=== PATIENT | male | born 1985 | race African-American/Black ===

== ENCOUNTER 2016-06-06 22:10 | Emergency (ER) | payer MEDICAID ==
[~2016-06-06] VITALS: Ht 185.4 cm; Wt 86.2 kg
--- NOTE | 2016-06-06 22:20 | Emergency Room Report ---
History of Present Illness General Chief Complaint: Overdose Source: Patient Present Illness HPI This is a 30-year-old male with a history of ADHD. He present with chief complaint of suicidal thoughts with overdose on his gabapentin. He took approximately half the bottle about an hour prior to arrival now. He said he want to kill himself. Denies any other complaint. No nausea no vomiting. No fever or chills. Never done this before. Never been in a psychiatric hospital. Denies any alcohol drugs. Allergies: Coded Allergies: No Known Allergies (Unverified , 06/06/16) Patient History Past Medical History: see triage record, old chart reviewed Past Surgical History: none Pertinent Family History: none Social History: Denies: smoking Immunizations: other Reviewed Nursing Documentation: PMH: Agreed, PSxH: Agreed Review of Systems Eye: Denies: blurred vision, eye pain ENT: Denies: ear pain, nose congestion, throat swelling Respiratory: Denies: cough, shortness of breath Cardiovascular: Denies: chest pain, palpitations Gastrointestinal: Denies: abdominal pain, diarrhea, nausea, vomiting Musculoskeletal: Denies: back pain, joint pain Skin: Denies: rash Neurological: Denies: headache, numbness Endocrine: Denies: increased thirst, increased urine Hematologic/Lymphatic: Denies: easy bruising All Other Systems: negative except mentioned in HPI Physical Exam Vital Signs Date Time Temp Pulse Resp B/P Pulse Ox O2 Delivery O2 Flow Rate FiO2 06/06/16 21:59 98.2 65 16 146/82 98 Room Air vitals normal Sp02 EP Interpretation: reviewed, normal General Appearance: well appearing, no apparent distress, alert Head: normocephalic, atraumatic Eyes: bilateral eye EOMI, bilateral eye PERRL ENT: hearing grossly normal, normal pharynx Neck: full range of motion, supple, no meningismus Respiratory: chest non-tender, lungs clear, normal breath sounds Cardiovascular #1: regular rate, rhythm, no murmur Gastrointestinal: normal bowel sounds, non tender, no mass, no organomegaly, no bruit, non-distended Musculoskeletal: back normal, gait/station normal, normal range of motion Psychiatric: mood/affect normal, other - Expressed suicidal thoughts Skin: warm/dry Medical Decision Making Diagnostic Impression: Primary Impression: Drug overdose Qualified Codes: T50.902A - Poisoning by unspecified drugs, medicaments and biological substances, intentional self-harm, initial encounter Additional Impression: Suicidal overdose Qualified Codes: T50.902A - Poisoning by unspecified drugs, medicaments and biological substances, intentional self-harm, initial encounter ER Course Patient presents with a questionable overdose. His affect is very flat. He is medically clear for psychiatric evaluation. No adverse affect. Lab Results Impression labs normal EKG Diagnostic Results Rate: normal Rhythm: NSR ST Segments: no acute changes Rhythm Strip Diag. Results EP Interpretation: yes Rate: 55 Rhythm: NSR, no PVC's, no ectopy Last Vital Signs Date Time Temp Pulse Resp B/P Pulse Ox O2 Delivery O2 Flow Rate FiO2 06/06/16 21:59 98.2 65 16 146/82 98 Room Air Status: improved Disposition: XFER TO PSYCH HOSP/UNIT Condition: Stable SARAH DOAN M.D. Jun 06, 2016 22:20
[2016-06-06 22:30] VITALS: BP 132/75
[2016-06-06] MEDS ORDERED: Activated Charcoal 50gm/240ml Btl ORAL ONE (22:30)
[2016-06-06 22:45] LABS: BASOPHILS % (AUTO) 1.2 % (0.0-2.0); LYMPHOCYTES % (AUTO) 34.2 % (20.0-45.0); MEAN CORPUSCULAR HGB CONC 32.2 G/DL (32.0-36.0); MEAN CORPUSCULAR VOLUME 93 FL (80-99); MEAN PLATELET VOLUME 10.4 FL (6.5-10.1); MONOCYTES % (AUTO) 8.2 % (1.0-10.0); NEUTROPHILS % (AUTO) 55.4 % (45.0-75.0); PLATELET COUNT 134 K/UL (150-450); RED BLOOD COUNT 4.74 M/UL (4.70-6.10); RED CELL DISTRIBUTION WIDTH 13.1 % (11.6-14.8); WHITE BLOOD COUNT 6.8 K/UL (4.8-10.8)
[2016-06-06 22:53] LABS: ACETAMINOPHEN < 10 ug/mL (10-30); ALANINE AMINOTRANSFERASE 9 U/L (3-41); ALBUMIN/GLOBULIN RATIO 1.7 (1.0-2.7); ALCOHOL < 10 mg/dL; ANION GAP 17 (5-15); ASPARTATE AMINO TRANSFERASE 20 U/L (5-40); CALCIUM 9.3 mg/dL (8.6-10.2); CARBON DIOXIDE 25 mEQ/L (20-30); CHLORIDE 97 mEQ/L (98-107); CREATININE 0.9 mg/dL (0.7-1.2); GLOMERULAR FILTRATION RATE > 60 mL/min (>60); HEMOLYSIS 10; POTASSIUM 3.6 mEQ/L (3.4-4.9); SODIUM 139 mEQ/L (135-145); TOTAL PROTEIN 7.1 g/dL (6.6-8.7)
[2016-06-06 23:09] LABS: APPEARANCE,URINE CLEAR; KETONES,URINE 2+ (NEGATIVE); LEUKOCYTE ESTERASE ,URINE NEGATIVE (NEGATIVE); NITRITE,URINE NEGATIVE (NEGATIVE); PH,URINE 6.5 (4.5-8.0); PROTEIN,URINE 1+ (NEGATIVE); UROBILINOGEN,URINE 4 MG/DL (0.0-1.0)
[2016-06-06 23:25] LABS: RBC,URINE 0-2 /HPF (0 - 0)
[2016-06-06 23:27] LABS: AMORPHOUS SEDIMENT,UR FEW /LPF; BACTERIA,URINE OCCASIONAL /HPF; WBC,URINE 0 /HPF (0 - 0)
[2016-06-07] VITALS (9 sets, daily range): BP systolic 100–123; BP diastolic 59–74
[2016-06-08 03:00] VITALS: BP 102/62
[2016-06-08 05:49] VITALS: BP 112/72
[2016-06-08] MEDS ORDERED: GABAPENTIN800 MG ORAL (07:14)
[2016-06-08 08:30] VITALS: BP 119/73
--- NOTE | 2016-06-08 10:18 | Emergency Room Report ---
Physical Exam Vital Signs Date Time Temp Pulse Resp B/P Pulse Ox O2 Delivery O2 Flow Rate FiO2 06/06/16 21:59 98.2 65 16 146/82 98 Room Air Medical Decision Making Diagnostic Impression: Primary Impression: Drug overdose Qualified Codes: T50.902A - Poisoning by unspecified drugs, medicaments and biological substances, intentional self-harm, initial encounter Additional Impression: Suicidal overdose Qualified Codes: T50.902A - Poisoning by unspecified drugs, medicaments and biological substances, intentional self-harm, initial encounter ER Course Received signout from Dr Mobley for 30 YOM with alleged drug overdose with SI Patient accepted to [facility] Patient had been medically cleared by previous ED physicians (please see their notes for more comprehensive information) No acute issues in ED during my care of patient Last Vital Signs Date Time Temp Pulse Resp B/P Pulse Ox O2 Delivery O2 Flow Rate FiO2 06/08/16 08:30 98.3 62 16 119/73 100 Room Air Status: improved Disposition: XFER TO PSYCH HOSP/UNIT Condition: Serious Referrals: NON PHYSICIAN (PCP) BRIANNE BOWER M.D. Jun 08, 2016 10:18
[2016-06-08 10:35] VITALS: BP 119/73
== END 2016-06-08 11:36 ==
LOC: EDBD 22:10 → EMR 23:40
DX: T42.6X2A Poisoning by other antiepileptic and sedative-hypnotic drugs, intentional self-harm, initial encounter (principal); Y92.9 Unspecified place or not applicable; F90.9 Attention-deficit hyperactivity disorder, unspecified type
CPT/HCPCS: 36415; 80053; 80300; 80329; 81003; 85025

== ENCOUNTER 2018-08-25 11:33 | Emergency (ER) | payer MEDICAID ==
[~2018-08-25] VITALS: Ht 182.9 cm; Wt 66.7 kg
[~2018-08-25 11:33] MED LIST: GABAPENTIN800 MG ORAL
[2018-08-25 12:00] VITALS: BP 122/86
[2018-08-25] MEDS ORDERED: Barium EZ Gas II granules MC PRN (12:15)
[2018-08-25] MEDS ORDERED: Barium EZ HD MC PRN (12:15)
[2018-08-25] MEDS ORDERED: Varibar Thin Liquid powder 148gm MC PRN (12:15)
[2018-08-25] MEDS ORDERED: DiphenhydrAMINE 50mg/ml Inj IM ONE (12:15)
--- NOTE | 2018-08-25 14:37 | Emergency Room Report ---
History of Present Illness General Chief Complaint: Pain Source: Patient Present Illness HPI The patient presents with dysphagia. He states that food gets stuck when he is trying to swallow. He says the problem is been going on for over a year. He denies any vomiting or diarrhea. He rates the pain in his throat is 10/10 on the left-hand side and feels like there is something stuck. He states that in the past he's taken Risperdal and Remeron. He denies taking Cogentin or Benadryl. He has involuntary muscle movements. He says he is not taking psychiatric medications at this time. No fevers, chills, chest pain, palpitations, nausea, vomiting, diarrhea, dysuria , abdominal pain, shortness of breath, depression, visual changes, headache. Allergies: Coded Allergies: No Known Allergies (Unverified , 06/06/16) Patient History Past Medical History: see triage record Social History: Reports: smoking Social History Narrative From home Reviewed Nursing Documentation: PMH: Agreed; PSxH: Agreed Nursing Documentation-PMH Past Medical History: No History, Except For History Of Psychiatric Problem: Yes Review of Systems All Other Systems: negative except mentioned in HPI Physical Exam Vital Signs Date Time Temp Pulse Resp B/P (MAP) Pulse Ox O2 Delivery O2 Flow Rate FiO2 08/25/18 11:38 98.2 91 25 96 Room Air 08/25/18 12:00 122/86 General Appearance: well appearing, no apparent distress, GCS 15 Head: normocephalic, atraumatic Eyes: bilateral eye normal inspection, bilateral eye PERRL, bilateral eye EOMI ENT: hearing grossly normal, normal pharynx, no angioedema, normal voice, moist mucus membranes, other - No foreign body seen Neck: full range of motion, supple, other - No stridor Respiratory: chest non-tender, lungs clear, normal breath sounds, no respiratory distress, speaking full sentences Cardiovascular #1: regular rate, rhythm Cardiovascular #2: 2+ radial (R) Gastrointestinal: normal inspection, normal bowel sounds, non tender, scaphoid Genitourinary: no CVA tenderness Musculoskeletal: digits/nails normal, normal range of motion Neurologic: alert, oriented x3, motor strength/tone normal - Almost choreiform and some involuntary muscle movements, DTRs symmetric, sensory intact, normal gait Psychiatric: mood/affect normal Skin: no rash Medical Decision Making Diagnostic Impression: Primary Impression: Dysphagia Qualified Codes: R13.19 - Other dysphagia Additional Impression: Tardive dyskinesia ER Course Patient presents with foreign body sensation in difficulty swallowing with pain that is been over a year. Differential includes diverticulum, foreign body, pharyngeal abrasion, muscle dysfunction secondary to psychiatric medications, somatization amongst others. The patient will be administered Benadryl and an esophageal swallow study will be performed. Patient appears well-hydrated and no laboratory studies are indicated. He is not suicidal and no psychiatric treatment is necessary at this time. Patient improved after Benadryl but still occasional tardive movements. Esophageal study without diverticulum, mass or stricture. Patient markedly improved after treatment. Discussed treatment plan with patient. Patient stable for outpatient observation and treatment. Other X-Ray Diagnostic Results Other X-Ray Diagnostic Results : X-Ray ordered: Gastrografin swallow Indication: Other EP Interpretation: Yes Interpretation: nonspecific bowel gas, no sbo, other - No diverticula or obstruction Impression: Other Electronically Signed by: Electronically signed by Jeff Wilde MD Last Vital Signs Date Time Temp Pulse Resp B/P (MAP) Pulse Ox O2 Delivery O2 Flow Rate FiO2 08/25/18 14:50 98.2 90 25 122/86 96 Room Air Status: improved Disposition: HOME, SELF-CARE Condition: Improved Scripts Mag Hydrox/Al Hydrox/Simeth (MAALOX MAXIMUM STRENGTH SUSP) 355 Ml Oral.susp 30 ML PO Q6HR, #240 ML Prov: Jeff Wilde MD 08/25/18 Benztropine Mesylate* (COGENTIN*) 0.5 Mg Tablet 0.5 MG PO BID, #20 TAB Prov: Jeff Wilde MD 08/25/18 Referrals: NON PHYSICIAN (PCP) Jeff Wilde MD August 25, 2018 14:37
[2018-08-25] MEDS ORDERED: BENZTROPINE ME0.5 MG PO (14:44)
[2018-08-25] MEDS ORDERED: MAALOX MAXIMUM355 M1 PO (14:44)
--- NOTE | 2018-08-25 14:47 | Diagnostic Imaging Report ---
Indication: Dysphagia, sensation of foreign body Technique: Patient ingested oral thick and thin liquid barium, effervescent granules, in multiple upright projections using C-arm. Fluoroscopic recording performed. Total fluoroscopy time 100.5 seconds. Total dose area product [id number] mGym2 Number of images: 15 Comparison: none Findings: Exam is limited, due to the availability of only a C-arm rather than dedicated fluoroscopy equipment. Normal oral pharyngeal and hypopharyngeal anatomy. No hang-up of contrast. Normal vallecula and piriform sinuses. No aspiration or penetration. No radiopaque foreign body demonstrated the distal esophagus demonstrates equivocal minimal dysmotility with somewhat slow forward propulsion of contrast but no significant tertiary contraction or contrast stasis. Impression: Limited exam, as described Equivocal minimal distal esophageal dysmotility Otherwise unremarkable. No evidence of hypopharyngeal obstruction or radiopaque foreign body or other findings to suggest etiology of stated clinical history of foreign body sensation
[2018-08-25 14:50] VITALS: BP 122/86
== END 2018-08-25 14:50 | disposition home or self-care (01) ==
LOC: EMR 12:02
DX: R13.19 Other dysphagia (principal); G24.01 Drug induced subacute dyskinesia; F17.200 Nicotine dependence, unspecified, uncomplicated
CPT/HCPCS: 74220; 96372; 99283; J1200